=== PATIENT | female | born 1975 | race Caucasian/White ===

== ENCOUNTER → 2023-12-20 06:36 | Day surgery (SDC) | payer OTHER, SELFPAY | LOC: GI 06:36 | PROVIDERS: ATTENDING PHYSICIAN Internal Medicine Gastroenterology | DX: Z12.11 Encounter for screening for malignant neoplasm of colon (principal); K64.0 First degree hemorrhoids | CPT/HCPCS: G0121 ==

== ENCOUNTER 2024-05-24 09:21 | Emergency (ER) | payer OTHER, SELFPAY ==
[2024-05-24 09:33] VITALS: BP 140/75
[2024-05-24 09:53] LABS: % Basophils 0.8 % (0-2); % Eosinophils 1.9 % (0-6); % Lymphocytes 37.5 % (20.5-51.1); % Monocytes 6.3 % (1.7-9.3); % Neutrophils 53.5 % (42.2-75.2); Absolute Eosinophils 0.1 10^3/uL (0-0.7); Absolute Lymphocytes 1.8 10^3/uL (1.2-3.4); Absolute Monocytes 0.3 10^3/uL (0.1-0.6); Absolute Neutrophils 2.6 10^3/uL (1.4-6.5); Hematocrit 40.3 % (37.0-47.0); Hemoglobin 14.1 g/dL (12.0-16.0); Mean Corpuscular Volume 94.4 fL (81.0-99.0); Mean Platelet Volume 9.9 fL (7.4-10.4); Nucleated Red Blood Cells % 0 %; Platelet Count 194 10^3/uL (130-400); Red Blood Cell Count 4.27 10^6/uL (4.20-5.40); Red Cell Dist. Width 13.1 % (11.5-14.5); White Blood Cell Count 4.8 10^3/uL (4.8-10.8)
[2024-05-24 10:02] LABS: HCG, Serum Qualitative Screen Negative
[2024-05-24 10:05] LABS: ALT (SGPT) 19 U/L (0-35); AST (SGOT) 31 U/L (14-36); Albumin 4.8 g/dl (3.5-5.0); Alkaline Phosphatase 49 U/L (38-126); Blood Urea Nitrogen 14 mg/dl (7-17); Calcium 9.6 mg/dl (8.4-10.2); Carbon Dioxide 28 mmol/L (22-30); Chloride 102 mmol/L (98-107); Glucose 81 mg/dl (70-99); Potassium 4.1 mmol/L (3.5-5.1); Sodium 141 mmol/L (135-145); Total Bilirubin 0.6 mg/dl (0.2-1.3); Total Protein 7.2 g/dl (6.3-8.2); eGFR > 60.00
--- NOTE | 2024-05-24 10:46 | ED.GENMED ---
History of Present Illness
General
Chief Complaint: Vaginal Bleeding
Time Seen by Provider: 05/24/24 10:42
History of Present Illness
History of Present Illness:
Patient presents to the emergency department with vaginal bleeding. Symptoms started 2 days ago with spotting. Since then her bleeding has picked up significantly. She notes that she has been passing clots this morning the size of golf balls.
Endorses cramping similar to normal periods. She notes that she has been having more frequent periods over the past few months. Denies any new vaginal discharge or fevers or chills. Denies any history of bleeding disorder
Past History
Past History
ED Past Medical History: Other (Anaphylaxis)
Social History
Tobacco: Non-smoker
Personal:
Living: with family
Phy Exam
Physical Exam
Physical Exam:
GENERAL APPEARANCE: NAD, well developed/ well nourished
EYES lids/conjunctiva normal
EARS/NOSE/THROAT Mucous membranes moist, uvula midline without oral pharyngeal erythema, exudate or swelling
HEAD/NECK normocephalic atraumatic, neck is supple.
RESPIRATORY respiratory effort normal, speaks in full sentences, no accessory muscle use. Lungs clear to auscultation without rhonchi, wheezes, rales
CARDIAC Regular rate and rhythm, no edema.
ABDOMINAL Soft, ND/NT.
pelvic exam: cervix is closed, no masses appreciated, oozing from uterus noted
MUSCLES/EXTREMITIES No abnormal range of motion, no swelling.
SKIN Warm, pink and dry. No rashes
NEUROLOGICAL Speech is clear and appropriate. Normal level of consciousness. 5/5 strength in all extremities.
PSYCH Normal mood and affect. Judgement/competence is appropriate
Course
Orders/Labs/Results
Orders:
Orders
05/24/24 09:37
Test Result ONCE
05/24/24 09:43
Type+Screen Urgent
Complete Blood Count/With Diff Urgent
Comprehensive Metabolic Panel Urgent
HCG, Serum Qualitative Screen Urgent
05/24/24 10:55
US Pelvis W Transvag Combined Urgent
Reason For Exam: vaginal bleeding
Abnormal Lab Results
05/24/24
09:43
MCH 33.0 H pg
(27.0-31.0)
05/24/24 09:43
05/24/24 09:43
Vital Signs
Initial and Last Documented VS:
Initial Vital Signs
Temp Pulse Resp BP Pulse Ox
97.7 F 57 16 140/75 100
05/24/24 09:33 05/24/24 09:33 05/24/24 09:33 05/24/24 09:33 05/24/24 09:33
Last Documented Vital Signs
Temp Pulse Resp BP Pulse Ox
97.7 F 70 18 113/76 99
05/24/24 09:33 05/24/24 14:14 05/24/24 14:14 05/24/24 14:14 05/24/24 14:14
*Critical Care Note
Total Time (30-74mins, 75-104mins- exclusive of procedures): Not Applicable
ED Attending Note
ED Attending Note
ED Attending Note:
Patient presents with dysfunctional uterine bleeding. She is hemodynamically stable with normal hemoglobin. On physical exam she has no significant hemorrhage. Will start on prescription strength NSAIDs, recommend close follow-up with her
drill doctor. Will avoid hormones in this 49-year-old patient as she may need biopsy to rule out cancer. Strict return precautions given
-
Portions of this chart may have been created with voice recognition software.� Occasional wrong word or��sound alike� substitutions may have occurred due to the inherent limitations of voice recognition software.
Discharge Plan
Departure
Patient Disposition: Home (Routine Discharge)
Date of Disposition: 05/24/24
Time of Disposition: 13:52
Patient with high blood pressure during this ER visit?: Yes
Discharge Problem:
DUB (dysfunctional uterine bleeding)
Prescriptions:
No Action
prenat.vits,sharla,fmo-gygf-gttpa [ Vitamin] 1 TAB tablet
1 tab PO
Zithromax Z-Venu
Patient Comments:
pateint taken 3 of 7 pills total
epinephrine [EpiPen 2-Venu] 0.3 MG/0.3 ML auto-injector
0.3 mg IJ PRN PRN (Reason: allergic reaction) Qty: 1 0RF
prednisone 50 MG tablet
50 mg PO DAILY Qty: 5 0RF
epinephrine [EpiPen 2-Venu] 0.3 MG/0.3 ML auto-injector
0.3 mg IJ DIRECTED PRN (Reason: take as directed as needed ) Qty: 1 0RF
Referrals:
Anton Flores MD [Family Provider] -
Activity Restrictions/Additional Instructions:
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 Return to the emergency department with lightheadedness, shortness of breath, chest pain or worsening symptoms.
Interventions
Interventions:
*Risk Screen - Suicide Last Done: 05/24/24 09:33
*General Assessment Last Done: 05/24/24 09:36
*Neglect/Abuse Screening Last Done: 05/24/24 09:33
*ED COVID-19 Vaccine History Last Done: 05/24/24 09:33
*Nursing Disposition Last Done: 05/24/24 14:15
ED-Female Genitourinary Assessment Last Done: 05/24/24 13:48
Discharge Date and Time
Discharge Date/Time: 05/24/24 14:15
Print Language: DJIBOUTIAN
[2024-05-24 14:14] VITALS: BP 113/76
== END 2024-05-24 14:15 | disposition home or self-care (01) ==
LOC: EMR 09:21
PROVIDERS: Emergency Medicine; EMERGENCY PHYSICIAN Emergency Medicine; FAMILY PHYSICIAN Family Medicine
DX: N93.8 Other specified abnormal uterine and vaginal bleeding (principal)
CPT/HCPCS: 99284; 76830; 76856; 80053; 84703; 85025; 86850; 86900; 86901

== ENCOUNTER → 2024-09-17 14:47 | Outpatient (REF) | payer OTHER, SELFPAY | LOC: HWWDC 14:47 | PROVIDERS: ATTENDING PHYSICIAN Nurse Practitioner Family; FAMILY PHYSICIAN Physician Assistant Medical | DX: Z12.31 Encounter for screening mammogram for malignant neoplasm of breast (principal) | CPT/HCPCS: 77063; 77067 ==